=== PATIENT | male | born 1935 | race Caucasian/White ===

== ENCOUNTER 2016-05-17 08:30 | Inpatient (IN) | payer MEDICARE, OTHER ==
[~2016-05-17] VITALS: Ht 177.8 cm; Wt 116.0 kg
[~2016-05-17 08:30] MED LIST: CLIN150 PO; FISH100020 PO; GLUCTAB PO; IBUP-232 PO; LANTUS2P SQ; LIPI10TA PO
[2016-06-06] MEDS ORDERED: ASPI1TAB69 PO (13:48)
[2016-06-06] MEDS ORDERED: METF1000 PO (13:54)
[2016-06-06] MEDS ORDERED: DOCU100C PO (13:54)
[2016-06-06] MEDS ORDERED: LISI-515 PO (13:54)
[2016-06-06] MEDS ORDERED: AMLO2.5T PO (13:54)
[2016-06-06] MEDS ORDERED: LORA-373 PO (13:54)
[2016-06-06] MEDS ORDERED: OMEG100037 PO (13:54)
[2016-06-06] MEDS ORDERED: ATOR1TAB18 PO (13:54)
[2016-06-06] MEDS ORDERED: LANTUS2P SQ (13:56)
[2016-06-10] MEDS ORDERED: diphenhydrAMINE HCL 50 MG/ML VIAL IV PRN (07:15)
[2016-06-10] MEDS ORDERED: ALUMINUM/MAGNESIUM/SIMETH 30 ML CUP PO PRN (07:15)
[2016-06-10] MEDS ORDERED: Post-op Orders (for Pharmacy) MISC XX ONE (07:15)
[2016-06-10] MEDS ORDERED: MAGNESIUM HYDROXIDE SUSP 30 ML CUP PO PRN (07:15)
[2016-06-10] MEDS ORDERED: BISACODYL 10 MG SUPP PR PRN (07:15)
[2016-06-10] MEDS ORDERED: SODIUM CHLORIDE 0.9% FLUSH 5 ML FLUSH IVF PRN (07:15)
[2016-06-10] MEDS ORDERED: LORazepam 0.5 MG TAB PO PRN (07:15)
[2016-06-10] MEDS ORDERED: ONDANSETRON HCL 4 MG/2 ML VIAL IVP PRN (07:15)
[2016-06-10] MEDS ORDERED: MORPHINE SULFATE 4 MG/ML INJ IV PUSH PRN (07:15)
[2016-06-10] MEDS ORDERED: NALOXONE HCL 0.4 MG/ML AMP IV PRN (07:15)
[2016-06-10] MEDS ORDERED: HYDR-3288 PO (07:17)
[2016-06-10] MEDS ORDERED: ENOX40P SQ (07:18)
[2016-06-10] MEDS: SODIUM CHLORIDE 0.9% IV SCH ×2 (07:30→10:51)
[2016-06-10] MEDS ORDERED: LACTATED RINGER'S 1000 ML IV SCH (07:30)
[2016-06-10] MEDS ORDERED: SODIUM CHLORID 0.9% 500 ML IV SCH (07:30)
[2016-06-10] MEDS ORDERED: METOPROLOL TARTRATE 25 MG TAB PO PRN (07:30)
[2016-06-10] MEDS: TRANEXAMIC ACID IV SCH ×2 (07:30→10:51)
[2016-06-10] MEDS ORDERED: INSULIN HUMAN REGULAR 1,000 UNITS/10 ML VIAL SQ PRN (07:30)
[2016-06-10] MEDS: ROPIVACAINE PERI-ARTICULAR INJECTION. PERIART SCH ×10 (07:30→10:51)
[2016-06-10] MEDS ORDERED: POVIDONE IODINE 7.5% SCRUB 118 ML BOTTLE TOP SCH (07:30)
[2016-06-10] MEDS ORDERED: VANCOMYCIN 1000 MG/NS 250 ML (for <70 kg) IV SCH ×2 (07:30)
[2016-06-10] MEDS ORDERED: DEXAMETHASONE SOD PHOS 20 MG/5 ML VIAL IV SCH (07:30)
[2016-06-10] MEDS: TRANEXAMIC PERI-ARTICULAR 3,000 MG/NS 100 ML P-ARTICULR SCH ×4 (07:30→10:51)
[2016-06-10] MEDS ORDERED: ceFAZolin 2 GM PREMIX 50 ML IV SCH (07:30)
[2016-06-10] MEDS ORDERED: IBUP-232 PO (07:52)
[2016-06-10 07:53] VITALS: BP 192/91; PULSE 89; RESP 18; TEMP 98.9; O2SAT 94
[2016-06-10] MEDS ORDERED: PILL SPLITTER OTHER PRN (08:15)
[2016-06-10] MEDS ORDERED: GENTAMICIN SULFATE 80 MG/2 ML VIAL ONE (08:27)
[2016-06-10] MEDS: SODIUM CHLORIDE 0.9% FLUSH 5 ML FLUSH IVF SCH ×2 (09:00→21:00)
[2016-06-10] MEDS: amLODIPine BESYLATE 5 MG TAB PO SCH (09:00)
[2016-06-10] MEDS ORDERED: METFORMIN 500 MG PO SCH (09:00)
[2016-06-10] MEDS: LISINOPRIL 20 MG TAB PO SCH (09:00)
[2016-06-10] MEDS ORDERED: MIDAZOLAM HCL 2 MG/2 ML VIAL ONE (09:14)
[2016-06-10] MEDS ORDERED: fentaNYL CITRATE 250 MCG/5 ML AMP ONE (09:25)
[2016-06-10] MEDS ORDERED: ACETAMINOPHEN 1000 MG/100 ML VIAL IV ONE (09:25)
[2016-06-10] MEDS ORDERED: PROPOFOL 200 MG/20 ML AMP IV ONE (11:50)
[2016-06-10] MEDS ORDERED: PHENYLEPH/NS 1000 MCG/10 ML SYR IV ONE (11:50)
[2016-06-10] MEDS ORDERED: LACTATED RINGER'S 1000 ML INJ 1,000 ML IV ONE (11:50)
[2016-06-10] MEDS ORDERED: ONDANSETRON HCL 4 MG/2 ML VIAL IV PUSH ONE (11:50)
[2016-06-10] MEDS ORDERED: NEOSTIGMINE 3 MG/3 ML SYR IV ONE (11:50)
[2016-06-10] MEDS ORDERED: BUPIVACAINE LIPOSOME PF 1.3% 20 ML VIAL ONE (12:18)
[2016-06-10] MEDS ORDERED: TRANEXAMIC ACID 1,000 MG/100 ML NS INTRA-OP IV SCH ×2 (12:30)
[2016-06-10] MEDS ORDERED: DO NOT ADM ANY ANTICOAGULANT DRUGS XX PRN (13:06)
--- NOTE | 2016-06-10 13:29 | MP ---
cc: ALEKSEY ANGEL M.D. DATE OF SURGERY: 06/10/2016 PREOPERATIVE DIAGNOSIS Right knee osteoarthritis. POSTOPERATIVE DIAGNOSES Right knee osteoarthritis. PROCEDURE Right total knee arthroplasty. SURGEON Dr. Aleksey Angel PELLET PREPARATION OPERATOR Aleksey Villarreal PA-C ANESTHESIA General. ESTIMATED BLOOD LOSS 100 cc. TOURNIQUET TIME 91 minutes at 275 mmHg COMPLICATIONS None. IMPLANTS USED DePuy Attune size 9 posterior stabilized femoral component, size 9 rotating platform tibia baseplate, size 12 mm polyethylene tibial insert, size 41 mm patella. JUSTIFICATION This patient is an 81-year-old male with a history of severe end-stage osteoarthritis involving the right knee. He has severe disabling pain with any walking, ambulation, weightbearing activities, even severe pain at rest. He has failed greater than three months of nonoperative conservative treatment to include medication, therapy, injections, ambulatory assisted aids, home exercise program, activity modification and weight loss attempts. X-rays of the right knee reveal incredible osteoarthritis with [id number] joint space narrowing, subchondral sclerosis, subchondral cysts and osteophyte formation. There is complete erosion of the medial tibial plateau and he has fallen into a severe varus deformity. The patient was counseled as to the risks, benefits and alternatives to a total knee arthroplasty. The risks were discussed which include but are not limited to anesthesia, bleeding, infection, damage to nerves and blood vessels, pain, stiffness, failure of components, blood clot, pulmonary embolism and even . The patient's pain is severe and does interfere with activities of daily living. He does wish to proceed with a total knee arthroplasty. He favored the benefits over the risks. PROCEDURE IN DETAIL A written consent was obtained. The patient was identified, taken to the operating room and placed supine on the operating table. General anesthesia was administered as well as two grams of IV Ancef and one gram of IV vancomycin. A well-padded tourniquet was placed on the right thigh. The right lower extremity was prepped and draped using isopropyl alcohol, Hibiclens solution and ChloraPrep solution. An Esmarch bandage was used to exsanguinate the right lower extremity. The tourniquet was inflated to 275 mmHg. A longitudinal incision was made over the anterior aspect of the right knee. A medial parapatellar arthrotomy was performed. The patella was everted and approximately 10 mm of patella was resected. A 41 mm guide was placed. Three drill holes were placed and the 41 mm trial fit well. Attention was turned to the femur where an intramedullary guide michel was placed. The distal femoral guide was set to remove 11 mm of distal femur 5 degrees off the anatomic valgus axis alignment. The patient did have a very large preoperative flexion contracture. An oscillating saw was used to perform the distal femoral cut. Attention was turned to the tibia where an extramedullary tibial guide was set to remove 1 mm off the lowest portion of the medial tibial plateau. A tibia guide was pinned in place and the tibial cut was performed. A 5 mm spacer block showed full extension. Attention was turned back to the femur where the AP sizing block measured size 9. The anterior reference 30 degree external rotation guide was used to pin a size [address] The anterior, posterior and chamfer cuts were performed. A size 9 PCL box guide was pinned in place and the PCL was box cut with an oscillating saw. The medial and lateral meniscus remnants were removed as well as bone and soft tissue debris from the posterior portion of the knee. A size 9 tibia baseplate was pinned in place and the tibia was drilled and punched. The trial components were evaluated and final components cemented in place. Prior to cementing the final components I did perform significant ligament balancing to include release of the medial collateral ligament and posterior medial corner to allow for appropriate soft tissue balancing. Once the varus-valgus balance appeared appropriate and symmetric, the final components were cemented in place and range of motion was 0 to approximately 130. The patella was noted to track centrally. There was no evidence of tibial lift-off. The tourniquet was deflated. Bovie cautery used for hemostasis. The knee was thoroughly irrigated with sterile saline pulse lavage antibiotic-impregnated solution. The arthrotomy incision was closed with #1 Vicryl suture, the subcutaneous layer with 2-0 Vicryl suture and skin was closed with Dermabond. Sterile dressing was applied. The patient tolerated the procedure well with no intraoperative complications noted. Aleksey Villarreal, physician corporate legal assistant certified, was present for the entire procedure to include patient positioning and the procedure itself. The medical necessity of the physician corporate legal assistant was indicated in this case due to the complexity of the procedure. He assisted with manipulation of the leg and also retraction of muscle, tendon, bone and neurovascular structures. He assisted with both preparation of bone and implantation of the prosthetic replacement. MD KARO Cruz/KAYE /12:33 PM /1:13 PM
[2016-06-10] MEDS: SODIUM CHLOR 0.9% 1000 ML INJ 1,000 ML IV SCH ×2 (13:38→16:28)
--- NOTE | 2016-06-10 13:49 | RADRPT ---
EXAM DATE/TIME: 06/10/2016 13:16 [place] COMPARISON: No previous studies available for comparison. INDICATIONS : Post op right knee surgery. MEDICAL HISTORY : None. SURGICAL HISTORY : left knee replacement years ago. ENCOUNTER: Initial ACUITY: 1 day PAIN SCORE: 0/10 LOCATION: Right knee FINDINGS: AP and lateral views of the knee following arthroplasty reveals a prosthesis in anatomic alignment. F racture is not appreciated. Surgical drain is evident CONCLUSION: Status post total knee arthroplasty. Michael Myers MD FACR Board Certified Radiologist. This report was verified electronically.
[2016-06-10] MEDS ORDERED: hydrALAZINE HCL 25 MG TAB PO PRN (14:00)
[2016-06-10] MEDS ORDERED: RESP: ALBUTEROL 2.5 MG/IPRATROPIUM 0.5 MG NEB (PRN) NEB (14:00)
[2016-06-10] MEDS ORDERED: ENALAPRILAT 1.25 MG/ML VIAL IV PUSH PRN (14:00)
--- NOTE | 2016-06-10 14:01 | PD.CONS ---
[facility] By [facility] Reason for Consult Medical management Primary Care Physician [facility] Diagnoses: History of Present Illness 81-year-old male with a history of hypertension, diabetes type 2, hyperlipidemia , and right knee severe osteoarthritis who despite medical management as as corticosteroid injection continue to have severe right knee pain affecting his daily living of activity including ambulation, was taken to the OR today and underwent right total knee arthroplasty. Patient was seen in PACU, denies any chest pain or shortness of breath. Vitals stable. 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 SKIN: No rashes, ecchymoses or lesions. Cool and dry. HEAD: Atraumatic. Normocephalic. No temporal or scalp tenderness. EYES: Pupils equal round and reactive. Extraocular motions intact. No scleral icterus. No injection or drainage. ENT: Nose without bleeding, purulent drainage or septal hematoma. Throat without erythema, tonsillar hypertrophy or exudate. Uvula midline. Airway patent. NECK: Trachea midline. No JVD or lymphadenopathy. Supple, nontender, no meningeal signs. CARDIOVASCULAR: Regular rate and rhythm without murmurs, gallops, or rubs. RESPIRATORY: Clear to auscultation. Breath sounds equal bilaterally. No wheezes , rales, or rhonchi. GASTROINTESTINAL: Abdomen soft, non-tender, nondistended. No hepato-splenomegaly , or palpable masses. No guarding. MUSCULOSKELETAL: Extremities without clubbing, cyanosis, or edema. Right knee repair, brace in place-neurovascular intact NEUROLOGICAL: Awake and alert. Cranial nerves II through XII intact. Motor and sensory grossly within normal limits. Five out of 5 muscle strength in all muscle groups. Normal speech. Laboratory Laboratory Tests Test 06/10/16 07:45 Blood Type O POSITIVE Antibody Screen NEGATIVE Blood Bank Comment Assessment and Plan Assessment and Plan 81-year-old male with Status post Right total knee arthroplasty 06/10/16: Management per orthopedic surgery Jona continue current postop care, pain management, PT consult to treat and eval. Lovenox for DVT prophylaxis Diabetes type 2: Currently on insulin, metformin and insulin sliding scale. Hypertension: Norvasc, lisinopril and hydralazine plus Vasotec when necessary Hyperlipidemia: Continue statin DVT prophylaxis: Lovenox Thank you for this consultation Code Status Full code Discussed Condition With Patient Jeromy Alexis MD Jun 10, 2016 14:01
[2016-06-10] MEDS ORDERED: DEXTROSE 50% IN WATER 50 ML VIAL(D50) IV PUSH PRN (15:15)
[2016-06-10] MEDS ORDERED: GLUCAGON 1 MG/ML VIAL OTHER PRN (15:15)
[2016-06-10] MEDS ORDERED: INSULIN ASPART 1,000 UNITS/10 ML VIAL SQ ONE (15:25)
[2016-06-10 15:50] VITALS: BP 116/72; PULSE 87; RESP 18; TEMP 97.7; O2SAT 100
[2016-06-10] MEDS: INSULIN ASPART SUPPLEMENTAL SCALE SQ SCH ×2 (16:00→23:11)
[2016-06-10] MEDS: ACETAMINOPHEN/HYDROcodone 325 MG/7.5 MG TAB PO PRN (16:26)
[2016-06-10] MEDS: metFORMIN HCL 500 MG TAB PO SCH (21:00)
[2016-06-10 21:30] VITALS: BP 101/62; PULSE 71; RESP 15; TEMP 96.1; O2SAT 99
[2016-06-10] MEDS: ZOLPIDEM TARTRATE 5 MG TAB PO PRN (23:10)
[2016-06-10] MEDS: INSULIN DETEMIR 100 UNITS/ML VIAL SQ SCH (23:11)
[2016-06-11 00:30] VITALS: BP 125/63; PULSE 73; RESP 16; TEMP 96.5; O2SAT 97
[2016-06-11 04:00] VITALS: BP 146/68; PULSE 87; RESP 16; TEMP 96.5; O2SAT 96
[2016-06-11] MEDS: SODIUM CHLOR 0.9% 1000 ML INJ 1,000 ML IV SCH ×2 (04:09→15:00)
[2016-06-11] MEDS: ACETAMINOPHEN/HYDROcodone 325 MG/7.5 MG TAB PO PRN ×4 (05:23→20:16)
[2016-06-11] MEDS: INSULIN ASPART SUPPLEMENTAL SCALE SQ SCH ×4 (05:30→20:23)
[2016-06-11 07:23] LABS: HEMATOCRIT 28.6 % (39.0-51.0); MEAN CELL VOLUME 86.5 FL (80.0-100.0); MEAN CORPUSCULAR HEMOGLOBIN 28.7 PG (27.0-34.0); MEAN CORPUSCULAR HGB CONC 33.2 % (32.0-36.0); PLATELET COUNT 189 TH/MM3 (150-450); RED BLOOD COUNT 3.31 MIL/MM3 (4.50-5.90); RED CELL DISTRIBUTION WIDTH 15.5 % (11.6-17.2); REVIEW FLAG FINAL; WHITE BLOOD COUNT 9.9 TH/MM3 (4.0-11.0)
[2016-06-11 07:31] LABS: POTASSIUM 4.2 MEQ/L (3.5-5.1)
[2016-06-11 08:00] VITALS: BP 107/61; PULSE 80; RESP 18; TEMP 96.7; O2SAT 98
[2016-06-11] MEDS: LISINOPRIL 20 MG TAB PO SCH (08:34)
[2016-06-11] MEDS: metFORMIN HCL 500 MG TAB PO SCH ×2 (08:34→18:23)
[2016-06-11] MEDS: amLODIPine BESYLATE 5 MG TAB PO SCH (08:35)
[2016-06-11] MEDS: SODIUM CHLORIDE 0.9% FLUSH 5 ML FLUSH IVF SCH ×2 (08:38→20:23)
--- NOTE | 2016-06-11 08:38 | PD.ORT.PN ---
Subjective Post Op Day #: 1 Subjective Remarks minimal pain. happy. Objective Vitals Vital Signs Date Time Temp Pulse Resp B/P Pulse Ox O2 Delivery O2 Flow Rate FiO2 06/11/16 04:00 96.5 87 16 146/68 96 06/11/16 00:30 96.5 73 16 125/63 97 06/10/16 21:30 96.1 71 15 101/62 99 06/10/16 15:50 97.7 87 18 116/72 100 06/10/16 14:30 82 16 114/58 92 Nasal Cannula 3 06/10/16 14:00 97.5 83 15 125/58 93 Nasal Cannula 3 06/10/16 13:45 81 20 112/55 94 Nasal Cannula 3 06/10/16 13:30 85 15 115/58 95 Nasal Cannula 3 06/10/16 13:15 90 16 156/79 95 Nasal Cannula 3 06/10/16 13:00 97.8 87 16 165/89 97 Nasal Cannula 3 I/O 06/10/16 06/10/16 06/10/16 06/11/16 06/11/16 06/11/16 07:00 15:00 23:00 07:00 15:00 23:00 Intake Total 1000 ml 1349 ml 864 ml Output Total 1130 ml 300 ml 550 ml Balance -130 ml 1049 ml 314 ml Intake Oral 480 ml 240 ml IV Total 869 ml 624 ml Other 1000 ml Output Urine Total 880 ml 300 ml 550 ml Estimated Blood Loss 250 ml # Bowel Movements 0 Result Diagram: 06/11/16 0547 06/11/16 0545 Objective Remarks in chair, nad incision no erythema, no drainage neg homans nvi Assessment & Plan Ortho Post Op Day #: 1 Problem List: Assessment and Plan s/p R TKA wbat daily dressing changes lovenoc d/c planning home with [facility] and pt rx in chart f/up dr. medina 2 weeks Shivam Villarreal Jun 11, 2016 08:37
[2016-06-11] MEDS ORDERED: ASPI1TAB69 PO (08:40)
--- NOTE | 2016-06-11 08:40 | HHI.DCPOC ---
Discharge Care Plan Diagnosis: (1) Primary localized osteoarthrosis, lower leg Your Health Problems Are: Difficulty with ADL Goals to Promote Your Health * To prevent worsening of your condition and complications * To maintain your health at the optimal level Directions to Meet Your Goals Take your medications as prescribed Follow your dietary instruction Follow activity as directed Keep your appointments as scheduled Take your immunizations and boosters as scheduled If your symptoms worsen call your PCP, if no PCP go to Urgent Care Center or Emergency Room Smoking is Dangerous to Your Health. Avoid second hand smoke Call the 24-hour hour crisis hotline for domestic abuse at Shivam Villarreal Jun 11, 2016 08:40
--- NOTE | 2016-06-11 08:41 | HHI.FF ---
Face to Face Verification Diagnosis: (1) Primary localized osteoarthrosis, lower leg Physical Therapy Gait training, Safety evaluation, Transfer training, bed to chair Knee: Total knee, Protocol: Right, Full weight bearing Right LE Weight Bearing: WB as tolerated Nursing RN: 3 days/week x 2 weeks Nursing: Sadie teaching, Dressing changes Dressing Changes: Daily dressing change I have seen patient Joe Betancourt on 06/11/16. My clinical findings support the need for the requested home health care services because: Limited ability to care for self High risk of falls I certify that my clinical findings support that this patient is homebound because: Post-op weakness Unsteady gait/balance Shivam Villarreal Jun 11, 2016 08:41
[2016-06-11] MEDS ORDERED: ADJUSTABLE COMM1 MIS (08:42)
[2016-06-11] MEDS ORDERED: CPMMACHINE (08:42)
--- NOTE | 2016-06-11 11:39 | HHI.PR ---
Subjective Remarks Patient seen and examined No acute event overnight Some left knee pain otherwise manageable Patient would like to be discharged to [facility] Objective Vitals Vital Signs Date Time Temp Pulse Resp B/P Pulse Ox O2 Delivery O2 Flow Rate FiO2 06/11/16 08:00 96.7 80 18 107/61 98 06/11/16 04:00 96.5 87 16 146/68 96 06/11/16 00:30 96.5 73 16 125/63 97 06/10/16 21:30 96.1 71 15 101/62 99 06/10/16 15:50 97.7 87 18 116/72 100 06/10/16 14:30 82 16 114/58 92 Nasal Cannula 3 06/10/16 14:00 97.5 83 15 125/58 93 Nasal Cannula 3 06/10/16 13:45 81 20 112/55 94 Nasal Cannula 3 06/10/16 13:30 85 15 115/58 95 Nasal Cannula 3 06/10/16 13:15 90 16 156/79 95 Nasal Cannula 3 06/10/16 13:00 97.8 87 16 165/89 97 Nasal Cannula 3 I/O 06/10/16 06/10/16 06/10/16 06/11/16 06/11/16 06/11/16 07:00 15:00 23:00 07:00 15:00 23:00 Intake Total 1000 ml 1349 ml 864 ml Output Total 1130 ml 300 ml 550 ml Balance -130 ml 1049 ml 314 ml Intake Oral 480 ml 240 ml IV Total 869 ml 624 ml Other 1000 ml Output Urine Total 880 ml 300 ml 550 ml Estimated Blood Loss 250 ml # Bowel Movements 0 Result Diagram: 06/11/16 0547 06/11/16 0545 Imaging Last Impressions Knee X-Ray 06/10/1615 Signed Impressions: Service Date/Time: Friday, June 10, 2016 13:16 - CONCLUSION: Status post total knee arthroplasty. Michael Myers MD Objective Remarks GENERAL: NAD SKIN: Warm and dry. HEAD: Normocephalic. EYES: No scleral icterus. No injection or drainage. NECK: Supple, trachea midline. No JVD or lymphadenopathy. CARDIOVASCULAR: Regular rate and rhythm without murmurs, gallops, or rubs. RESPIRATORY: Breath sounds equal bilaterally. No accessory muscle use. GASTROINTESTINAL: Abdomen soft, non-tender, nondistended. MUSCULOSKELETAL: No cyanosis, or edema. Left knee repair-neurovascular intact BACK: Nontender without obvious deformity. No CVA tenderness. A/P Assessment and Plan 81-year-old male with 1-Status post Right total knee arthroplasty 06/10/16: Management per orthopedic surgery Jona continue current postop care, pain management, PT consult to treat and eval. Lovenox for DVT prophylaxis 2-Diabetes type 2: Currently on insulin, metformin and insulin sliding scale + FSBG monitoring. 3-Hypertension: Norvasc, lisinopril and hydralazine plus Vasotec when necessary 4-Hyperlipidemia: Continue statin 5-DVT prophylaxis: Shamanox Jeromy Alexis MD Jun 11, 2016 11:39
[2016-06-11] MEDS: MAGNESIUM HYDROXIDE SUSP 30 ML CUP PO SCH ×2 (11:54→20:15)
[2016-06-11] MEDS: ENOXAPARIN SODIUM 40 MG/0.4 ML SYRINGE SQ SCH (11:54)
[2016-06-11 12:00] VITALS: BP 140/69; PULSE 83; RESP 18; TEMP 97.1; O2SAT 99
[2016-06-11 16:00] VITALS: BP 116/69; PULSE 84; RESP 18; TEMP 98; O2SAT 94
[2016-06-11] MEDS: MULTIVITAMINS/MINERALS THERAPEUTIC TAB PO SCH (20:14)
[2016-06-11] MEDS: SENNOSIDES 8.6 MG TAB PO SCH (20:14)
[2016-06-11] MEDS: DOCUSATE SODIUM 100 MG CAP PO SCH (20:15)
[2016-06-11] MEDS: INSULIN DETEMIR 100 UNITS/ML VIAL SQ SCH (20:24)
[2016-06-12 00:45] VITALS: BP 117/60; PULSE 76; RESP 19; TEMP 96.8; O2SAT 93
[2016-06-12 04:00] VITALS: BP 153/76; PULSE 83; RESP 19; TEMP 96.7; O2SAT 92
[2016-06-12] MEDS: ACETAMINOPHEN/HYDROcodone 325 MG/7.5 MG TAB PO PRN ×3 (04:39→14:38)
[2016-06-12] MEDS: INSULIN ASPART SUPPLEMENTAL SCALE SQ SCH ×4 (07:00→20:22)
[2016-06-12 07:13] LABS: HEMATOCRIT 26.2 % (39.0-51.0); MEAN CORPUSCULAR HEMOGLOBIN 28.8 PG (27.0-34.0); MEAN CORPUSCULAR HGB CONC 33.1 % (32.0-36.0); PLATELET COUNT 161 TH/MM3 (150-450); RED BLOOD COUNT 3.01 MIL/MM3 (4.50-5.90); RED CELL DISTRIBUTION WIDTH 15.2 % (11.6-17.2); REVIEW FLAG FINAL; WHITE BLOOD COUNT 8.5 TH/MM3 (4.0-11.0)
[2016-06-12 07:27] LABS: BICARBONATE 30.7 MEQ/L (21.0-32.0); POTASSIUM 4.8 MEQ/L (3.5-5.1)
--- NOTE | 2016-06-12 07:47 | PD.ORT.PN ---
Subjective Post Op Day #: 2 Subjective Remarks minimal pain. wants to go to snf. Objective Vitals Vital Signs Date Time Temp Pulse Resp B/P Pulse Ox O2 Delivery O2 Flow Rate FiO2 06/12/16 00:45 96.8 76 19 117/60 93 06/11/16 21:16 18 06/11/16 16:00 98.0 84 18 116/69 94 06/11/16 12:00 97.1 83 18 140/69 99 06/11/16 08:00 96.7 80 18 107/61 98 I/O 06/11/16 06/11/16 06/11/16 06/12/16 06/12/16 06/12/16 07:00 15:00 23:00 07:00 15:00 23:00 Intake Total 864 ml 600 ml 480 ml Output Total 550 ml Balance 314 ml 600 ml 480 ml Intake Oral 240 ml 600 ml 480 ml IV Total 624 ml Output Urine Total 550 ml # Voids 1 1 # Bowel Movements 0 0 Result Diagram: 06/12/16 0643 06/12/16 0643 Objective Remarks in bed, nad dressing c/d/i neg homans nvi Assessment & Plan Ortho Post Op Day #: 2 Problem List: Assessment and Plan s/p R TKA wbat daily dressing changes lovenox OOB and IS d/c planning to snf - likely Thurs. rx in chart f/up dr. medina 2 weeks Shivam Villarreal Jun 12, 2016 07:47
[2016-06-12 08:00] VITALS: BP 113/67; PULSE 73; RESP 18; TEMP 96.8; O2SAT 95
[2016-06-12] MEDS: SODIUM CHLORIDE 0.9% FLUSH 5 ML FLUSH IVF SCH ×2 (09:00→20:20)
[2016-06-12] MEDS: metFORMIN HCL 500 MG TAB PO SCH ×2 (09:48→17:08)
[2016-06-12] MEDS: LISINOPRIL 20 MG TAB PO SCH (09:48)
[2016-06-12] MEDS: DOCUSATE SODIUM 100 MG CAP PO SCH ×2 (09:48→20:20)
[2016-06-12] MEDS: amLODIPine BESYLATE 5 MG TAB PO SCH (09:48)
[2016-06-12] MEDS: MAGNESIUM HYDROXIDE SUSP 30 ML CUP PO SCH ×2 (09:49→20:20)
[2016-06-12] MEDS: MULTIVITAMINS/MINERALS THERAPEUTIC TAB PO SCH ×2 (09:49→20:20)
--- NOTE | 2016-06-12 09:59 | HHI.PR ---
Subjective Remarks Patient seen and examined Sitting the chair and no significant right knee pain Afebrile Objective Vitals Vital Signs Date Time Temp Pulse Resp B/P Pulse Ox O2 Delivery O2 Flow Rate FiO2 06/12/16 08:00 96.8 73 18 113/67 95 06/12/16 04:00 96.7 83 19 153/76 92 06/12/16 00:45 96.8 76 19 117/60 93 06/11/16 21:16 18 06/11/16 16:00 98.0 84 18 116/69 94 06/11/16 12:00 97.1 83 18 140/69 99 I/O 06/11/16 06/11/16 06/11/16 06/12/16 06/12/16 06/12/16 07:00 15:00 23:00 07:00 15:00 23:00 Intake Total 864 ml 600 ml 480 ml 240 ml Output Total 550 ml Balance 314 ml 600 ml 480 ml 240 ml Intake Oral 240 ml 600 ml 480 ml 240 ml IV Total 624 ml Output Urine Total 550 ml # Voids 1 1 1 # Bowel Movements 0 0 0 Result Diagram: 06/12/16 0643 06/12/16 0643 Objective Remarks GENERAL: NAD and sitting in a chair SKIN: Warm and dry. HEAD: Normocephalic. EYES: No scleral icterus. No injection or drainage. NECK: Supple, trachea midline. No JVD or lymphadenopathy. CARDIOVASCULAR: Regular rate and rhythm without murmurs, gallops, or rubs. RESPIRATORY: Breath sounds equal bilaterally. No accessory muscle use. GASTROINTESTINAL: Abdomen soft, non-tender, nondistended. MUSCULOSKELETAL: No cyanosis, or edema. Left knee repair, dressing over incision-neurovascular intact BACK: Nontender without obvious deformity. No CVA tenderness. A/P Assessment and Plan 81-year-old male with 1-Status post Right total knee arthroplasty 06/10/16: Stable and Management per orthopedic surgery Jona continue current postop care, pain management, PT consult to treat and eval. Lovenox for DVT prophylaxis 2-Diabetes type 2: Currently on insulin, metformin and insulin sliding scale + FSBG monitoring. 3-Hypertension: Norvasc, lisinopril and hydralazine plus Vasotec when necessary 4-Hyperlipidemia: Continue statin 5-DVT prophylaxis: Lovenox Discharge Planning Discharge 06/13/16 Jeromy Alexis MD Jun 12, 2016 09:59
[2016-06-12] MEDS: SODIUM CHLOR 0.9% 1000 ML INJ 1,000 ML IV SCH ×2 (11:00→21:00)
[2016-06-12 12:00] VITALS: BP 140/60; PULSE 93; RESP 20; TEMP 99.6; O2SAT 92
[2016-06-12] MEDS: ENOXAPARIN SODIUM 40 MG/0.4 ML SYRINGE SQ SCH (12:59)
[2016-06-12 16:00] VITALS: BP 106/52; PULSE 85; RESP 18; TEMP 99; O2SAT 94
[2016-06-12 20:00] VITALS: BP 136/72; PULSE 89; RESP 17; TEMP 99; O2SAT 93
[2016-06-12] MEDS: SENNOSIDES 8.6 MG TAB PO SCH (20:21)
[2016-06-12] MEDS: INSULIN DETEMIR 100 UNITS/ML VIAL SQ SCH (20:21)
[2016-06-12] MEDS: ZOLPIDEM TARTRATE 5 MG TAB PO PRN (20:24)
[2016-06-13] VITALS: BP 93/56; PULSE 103; RESP 16; TEMP 99.7; O2SAT 97
[2016-06-13] MEDS: SENNOSIDES 8.6 MG TAB PO SCH (03:13)
[2016-06-13] MEDS: MAGNESIUM HYDROXIDE SUSP 30 ML CUP PO SCH ×2 (03:14→08:59)
[2016-06-13 04:00] VITALS: BP 98/53; PULSE 94; RESP 16; TEMP 99.9; O2SAT 97
[2016-06-13] MEDS: INSULIN ASPART SUPPLEMENTAL SCALE SQ SCH (07:00)
[2016-06-13] MEDS: SODIUM CHLOR 0.9% 1000 ML INJ 1,000 ML IV SCH (07:00)
[2016-06-13 07:15] LABS: HEMATOCRIT 26.4 % (39.0-51.0); MEAN CELL VOLUME 86.2 FL (80.0-100.0); MEAN CORPUSCULAR HEMOGLOBIN 28.9 PG (27.0-34.0); MEAN CORPUSCULAR HGB CONC 33.5 % (32.0-36.0); PLATELET COUNT 170 TH/MM3 (150-450); RED BLOOD COUNT 3.06 MIL/MM3 (4.50-5.90); RED CELL DISTRIBUTION WIDTH 15.5 % (11.6-17.2); REVIEW FLAG FINAL; WHITE BLOOD COUNT 8.2 TH/MM3 (4.0-11.0)
[2016-06-13 07:22] LABS: BICARBONATE 27.3 MEQ/L (21.0-32.0)
[2016-06-13 08:00] VITALS: BP 122/69; PULSE 78; RESP 18; TEMP 96.8; O2SAT 95
--- NOTE | 2016-06-13 08:12 | PD.ORT.PN ---
Subjective Post Op Day #: 3 Subjective Remarks minimal pain. wants to go to snf. feeling better. had BM. Objective Vitals Vital Signs Date Time Temp Pulse Resp B/P Pulse Ox O2 Delivery O2 Flow Rate FiO2 06/13/16 04:00 99.9 94 16 98/53 97 06/13/16 00:00 99.7 103 16 93/56 97 06/12/16 20:00 99.0 89 17 136/72 93 06/12/16 19:19 Room Air 06/12/16 16:00 99.0 85 18 106/52 94 06/12/16 12:00 99.6 93 20 140/60 92 I/O 06/12/16 06/12/16 06/12/16 06/13/16 06/13/16 06/13/16 07:00 15:00 23:00 07:00 15:00 23:00 Intake Total 240 ml 720 ml 240 ml 240 ml Output Total 400 ml Balance 240 ml 720 ml 240 ml -160 ml Intake Oral 240 ml 720 ml 240 ml 240 ml Output Urine Total 400 ml # Voids 1 3 1 # Bowel Movements 0 0 0 0 Result Diagram: 06/13/16 0630 06/13/16 0630 Objective Remarks in chair, nad dressing c/d/i neg homans nvi Assessment & Plan Ortho Post Op Day #: 3 Problem List: Assessment and Plan s/p R TKA wbat daily dressing changes lovenox OOB and IS d/c planning to snf - cleared for today rx in chart f/up dr. medina 2 weeks Shivam Villarreal Jun 13, 2016 08:12
[2016-06-13] MEDS: LISINOPRIL 20 MG TAB PO SCH (08:58)
[2016-06-13] MEDS: amLODIPine BESYLATE 5 MG TAB PO SCH (08:58)
[2016-06-13] MEDS: MULTIVITAMINS/MINERALS THERAPEUTIC TAB PO SCH (08:58)
[2016-06-13] MEDS: metFORMIN HCL 500 MG TAB PO SCH (08:58)
[2016-06-13] MEDS: DOCUSATE SODIUM 100 MG CAP PO SCH (08:59)
[2016-06-13] MEDS: SODIUM CHLORIDE 0.9% FLUSH 5 ML FLUSH IVF SCH (08:59)
[2016-06-13] MEDS: ACETAMINOPHEN/HYDROcodone 325 MG/7.5 MG TAB PO PRN (08:59)
--- NOTE | 2016-06-13 10:01 | HHI.PR ---
Subjective Remarks Patient seen and examined States he has episode of hallucination after he was given Ambien last night Otherwise stable this morning Objective Vitals Vital Signs Date Time Temp Pulse Resp B/P Pulse Ox O2 Delivery O2 Flow Rate FiO2 06/13/16 08:00 96.8 78 18 122/69 95 06/13/16 04:00 99.9 94 16 98/53 97 06/13/16 00:00 99.7 103 16 93/56 97 06/12/16 20:00 99.0 89 17 136/72 93 06/12/16 19:19 Room Air 06/12/16 16:00 99.0 85 18 106/52 94 06/12/16 12:00 99.6 93 20 140/60 92 I/O 06/12/16 06/12/16 06/12/16 06/13/16 06/13/16 06/13/16 07:00 15:00 23:00 07:00 15:00 23:00 Intake Total 240 ml 720 ml 240 ml 240 ml Output Total 400 ml Balance 240 ml 720 ml 240 ml -160 ml Intake Oral 240 ml 720 ml 240 ml 240 ml Output Urine Total 400 ml # Voids 1 3 1 # Bowel Movements 0 0 0 0 Result Diagram: 06/13/16 0630 06/13/16 0630 Objective Remarks GENERAL: NAD and sitting in a chair SKIN: Warm and dry. HEAD: Normocephalic. EYES: No scleral icterus. No injection or drainage. NECK: Supple, trachea midline. No JVD or lymphadenopathy. CARDIOVASCULAR: Regular rate and rhythm without murmurs, gallops, or rubs. RESPIRATORY: Breath sounds equal bilaterally. No accessory muscle use. GASTROINTESTINAL: Abdomen soft, non-tender, nondistended. MUSCULOSKELETAL: No cyanosis, or edema. Left knee repair, dressing over incision-neurovascular intact BACK: Nontender without obvious deformity. No CVA tenderness. A/P Assessment and Plan 81-year-old male with 1-Status post Right total knee arthroplasty 06/10/16: Stable and Management per orthopedic surgery Jona continue current postop care, pain management, PT to treat and eval. Lovenox for DVT prophylaxis 2-Diabetes type 2: Currently on insulin, metformin and insulin sliding scale + FSBG monitoring. 3-Hypertension: Norvasc, lisinopril and hydralazine plus Vasotec when necessary 4-Hyperlipidemia: Continue statin 5-DVT prophylaxis: Lovenox Discharge Planning Discharge 06/13/16 to SNF Jeromy Alexis MD Jun 13, 2016 10:01
--- NOTE | 2016-06-17 08:57 | MD ---
cc: ALEKSEY ANGEL ADMISSION DATE: 06/10/2016 DISCHARGE DATE: 06/13/2016 ADMISSION DIAGNOSIS Severe degenerative osteoarthritis right knee. DISCHARGE DIAGNOSIS Severe degenerative osteoarthritis right knee. HISTORY OF PRESENT ILLNESS Mr. Betancourt is an 81-year-old male who presented to the [facility] for evaluation by Dr. Aleksey Angel regarding his severe and progressive right knee pain. The patient states the pain has been bothering him for greater than four years of which the last four months he states has been unbearable. He is unable to even sit in a comfortable position with his knee bent. He notes the pain is aggravated by any type of weightbearing activity and range of motion and the pain is inhibiting his activities of daily living. He states in the past he has tried medications, assistive devices, physical therapy home exercise program and multiple injections, all without significant relief of symptoms. He does have x-ray evidence of severe degenerative osteoarthritis. While in the office the patient was counseled on his diagnosis and treatment options, risks, benefits and indications of all were discussed. The patient did elect to proceed with surgical intervention to include a right total knee arthroplasty. DATE OF SURGERY 06/10/2016. PROCEDURE PERFORMED Right total knee arthroplasty. POSTOP After surgery the patient was admitted to [facility] where he received appropriate medical management, pain control, DVT prophylaxis as well as physical therapy. DISCHARGE Once being discharged the hospital, the patient was cleared to go to a halfway facility. He is in stable condition. The patient may weight-bear as tolerated. He is to receive daily dressing changes and has been instructed on appropriate wound care management. The patient has been provided prescriptions for both pain control as well as DVT prophylaxis medication. He has also been provided a follow-up appointment to see Dr. Aleksey nAgel in the office in approximately two weeks from the day of surgery. The patient has asked appropriate questions which have been answered. The patient is cleared for discharge. Dictated by: Carroll Villarreal PA-C Aleksey Angel MD JWM/FRANCO /8:15 AM /8:55 AM
== END 2016-06-13 10:38 | DRG 470 ==
LOC: HSDI 06-10 06:51 → N06A 06-10 15:48
PROVIDERS: ADMIT Orthopaedic Surgery Sports Medicine; ATTEND Orthopaedic Surgery Sports Medicine
PROC: 3E0T3CZ (ICD-10-PCS; 2016-06-10)
PROC: 0SRC0J9 Replacement of Right Knee Joint with Synthetic Substitute, Cemented, Open Approach (ICD-10-PCS; principal; 2016-06-10 09:54)
DX: M17.11 Unilateral primary osteoarthritis, right knee (principal); E11.9 Type 2 diabetes mellitus without complications; I10 Essential (primary) hypertension; E78.5 Hyperlipidemia, unspecified; Z87.891 Personal history of nicotine dependence; Z79.84 Long term (current) use of oral hypoglycemic drugs
CPT/HCPCS: 73560; 80048; 82948; 85027; 86850; 86900; 86901; 94150; C1776; C9290; J0131; J0171; J0690; J0735; J1100; J1580; J1650; J1815; J1885; J2250; J2370; J2405; J2710; J2795; J3010; J7030; J7120; L1830